=== PATIENT | male | born 1975 | race Caucasian/White ===

== ENCOUNTER 2023-07-19 10:09 | Day surgery (SDC) | payer OTHER ==
--- NOTE | 2023-07-19 09:11 | HP ---
DATE OF SURGERY: 07/19/2023 HISTORY OF PRESENT ILLNESS: The patient is a 47-year-old with no prior colonoscopy, no bloody stools, no change in bowel movements and no new pain. Family history negative for colon cancer. He was diagnosed with sleep apnea and started on CPAP machine. PAST MEDICAL HISTORY: Sleep apnea, migraines, gout. History of alcohol abuse in the past over since 2006. History of pancreatitis and depression in the past. PAST SURGICAL HISTORY: Carpal tunnel release. MEDICATIONS: Emgality, testosterone, buprenorphine. ALLERGIES: NKDA. FAMILY HISTORY: Negative in regards to this problem. Negative for colon cancer. SOCIAL HISTORY: History of smoking. No alcohol abuse. He does do some vaping. REVIEW OF SYSTEMS: Twelve systems reviewed. No chest pain or palpitations. Other systems negative or noncontributory as above and per preadmission questionnaire. PHYSICAL EXAMINATION: Height 6 feet 1 inch. BMI 23.75. GENERAL: No acute distress. HEENT: Sclerae nonicteric. EOMI. Oral mucous membranes moist. NECK: No JVD. CHEST: Equal excursion, nonlabored breathing. CVS: Regular rate and rhythm. ABDOMEN: Soft. EXTREMITIES: No cyanosis. NEURO: Alert, moving extremities symmetrically. RECTAL: Deferred timed to endoscopy exam. PSYCH: Appropriate mood and affect. SKIN: Dry. IMPRESSION: Need for screening colonoscopy. I feel the patient is a candidate. Risks and benefits explained in detail including but not limited to risk of bleeding or infection, risk of bowel injury or perforation possibly requiring further procedure, risk of missed or nondiagnosis or incomplete exam possibly requiring barium enema, other studies or procedures, general risk of anesthesia or sedation, risk of bowel prep but not limited to, consent obtained. Will proceed with outpatient screening colonoscopy under MAC anesthesia. Otherwise, continue treatment for sleep apnea, migraine headaches, depression, continue medical management.
[2023-07-19] MEDS: Lactated Ringers 1,000 ML IV SCH (11:00)
[2023-07-19] MEDS ORDERED: Versed 2 MG/2 ML Injection ONE (12:30)
[2023-07-19] MEDS ORDERED: DIPRIVAN 200 MG/20 ML IV ONE (12:30)
[2023-07-19 13:25] VITALS: RESP 16
[2023-07-19 13:28] VITALS: BP 133/85; PULSE 61; TEMP 97.4; O2SAT 98
--- NOTE | 2023-07-19 14:33 | OP ---
SURGERY DATE/TIME: 07/19/2023 1230 PREOPERATIVE DIAGNOSIS: Need for screening colonoscopy. POSTOPERATIVE DIAGNOSES: 1) Small polyps x2 rectum. 2) Fair bowel prep (large amount of liquidy stool throughout the colon just slightly limiting the exam for small lesions). 3) ASA Class II. PROCEDURES: 1) Colonoscopy to cecum. 2) Hot biopsy polypectomy rectal polyp x2. SURGEON: Dr. Gucci Liu M.D. ANESTHESIA: MAC. ESTIMATED BLOOD LOSS: Minimal. INDICATIONS: As noted above. Risks and benefits explained in detail but not limited to and consent obtained. DESCRIPTION OF PROCEDURE AND FINDINGS: The patient is taken to the endoscopy room. MAC anesthesia induced. After official time out and no disagreement with planned procedure, digital rectal exam did not reveal any rectal masses. Video colonoscope inserted and passed up through the tortuous sigmoid, descending, transverse and ascending colon around to the cecum. The scope was then carefully withdrawn over the next nine minutes. Irrigated out a large amount of liquidy stool, some little semisolid flakes limiting the exam for very small lesions this was suction irrigated as clear as possible. The scope was carefully withdrawn back to the rectum. Two small early polyps versus hyperplastic lesion removed with hot biopsy polypectomy. Good hemostasis noted. The scope is withdrawn. The patient tolerated the procedure well. Findings discussed with the family out in the waiting area.
== END 2023-07-19 13:39 | disposition home or self-care (01) ==
LOC: SDC 10:09
PROVIDERS: ATTEND Surgery
DX: Z12.11 Encounter for screening for malignant neoplasm of colon (principal); K62.1 Rectal polyp
CPT/HCPCS: J2250; J2704

== ENCOUNTER 2024-03-20 22:21 | Emergency (ER) | payer OTHER ==
--- NOTE | 2024-03-20 22:30 | ERPHSYRPT ---
- History of Present Illness Time Seen by Provider: 03/20/24 22:30 Source: patient Exam Limitations: no limitations Physician History: This is a 48-year-old white male patient who arrives by private vehicle and uses [facility] as his primary care providers and presents with midline suprapubic tenderness that began yesterday and is described as localized and sharp. Patient has not done any heavy lifting or sustained any trauma to this area. He had no acute sudden lifting or falls. Patient has associated dysuria and urinary frequency. Patient has not noticed any hematuria. Patient was seen in the pain clinic on 03/13/2024 for management of chronic back pain issues that he has. Patient is a daily smoker of tobacco cigarettes. In the distant past patient has had history of alcohol abuse and has a history of occasional recurrent pancreatitis. He has a history of sleep apnea and arthritis. Timing/Duration: yesterday Activites at Onset: physical activity Quality: burning (With urination), sharpness (Present in the suprapubic region) Onset Location: suprapubic Pain Radiation: none Severity of Pain-Max: moderate Severity of Pain-Current: mild Modifying Factors: Improves With: movement Associated Symptoms: abdominal pain (Sharp pain in the superior pubic region), dysuria, urinary frequency, other (Has had more difficulty starting urinary flow in the last 2 days), No nausea, No vomiting Prior abdominal problems: none Sexual intercourse history: non-contributory Allergies/Adverse Reactions: No Known Drug Allergies Allergy (Verified 03/20/24 22:40) Home Medications: Buprenorphine HCl/Naloxone HCl [Buprenorphine-Nalox 8-2 mg Tab] 2 tab SL DAILY 07/08/23 [History] Galcanezumab-Gnlm [Emgality Pen] 1 dose SQ UD 07/08/23 [History] Testosterone Cypionate 0.25 mg SQ WEEKLY 07/08/23 [History] Ubrogepant [Ubrelvy] 2 tab PO DAILY PRN PRN 07/08/23 [History] Gabapentin 100 mg PO TID 03/20/24 [History] buPROPion HCL [Bupropion Xl] 300 mg PO DAILY 03/20/24 [History] Travel Risk - International Travel Have you traveled outside of the country in past 3 weeks: No - Emerging Infectious Disease Are you exhibiting symptoms associated with any current EIDs: No - Past Medical History Pertinent Past Medical History: Yes Neurological History: No Pertinent History ENT History: No Pertinent History Cardiac History: No Pertinent History Respiratory History: Sleep Apnea Endocrine Medical History: No Pertinent History Musculoskeletal History: Arthritis GI Medical History: Pancreatitis History: No Pertinent History Psycho-Social History: Depression Male Reproductive Disorders: Other Other Medical History: c-pap at night, neck, spine and joint problems. depression in the past. alcohol abuse in the past - Past Surgical History Past Surgical History: Yes Neuro Surgical History: No Pertinent History Cardiac: No Pertinent History Respiratory: No Pertinent History Gastrointestinal: No Pertinent History Genitourinary: No Pertinent History Musculoskeletal: Other Male Surgical History: No Pertinent History Other Surgical History: carpaltuneel both hands - Social History Smoking Status: Current every day smoker Exposure to second hand smoke: No Drug Use: none - Review of Systems Constitutional: No Symptoms Eyes: No Symptoms Ears, Nose, & Throat: No Symptoms Respiratory: No Symptoms Cardiac: No Symptoms Abdominal/Gastrointestinal: Abdominal Pain (Sharp pain in the suprapubic region) Genitourinary Symptoms: Dysuria, Frequency Musculoskeletal: No Symptoms Skin: No Symptoms Neurological: No Symptoms Psychological: No Symptoms Endocrine: No Symptoms Hematologic/Lymphatic: No Symptoms Immunological/Allergic: No Symptoms All Other Systems: Reviewed and Negative - Nursing Vital Signs Nursing Vital Signs: Initial Vital Signs Temperature 98.5 F 03/20/24 22:30 Pulse Rate 83 03/20/24 22:30 Respiratory Rate 16 03/20/24 22:30 Blood Pressure 135/85 03/20/24 22:30 O2 Sat by Pulse Oximetry 98 03/20/24 22:30 Pain Scale Pain Intensity 1 - Physical Exam General Appearance: no apparent distress, alert, anxiety Eye Exam: PERRL/EOMI, eyes nml inspection Ears, Nose, Throat Exam: normal ENT inspection, moist mucous membranes Neck Exam: normal inspection, non-tender, supple, full range of motion Respiratory Exam: normal breath sounds, lungs clear, airway intact, No chest tenderness, No respiratory distress Cardiovascular Exam: regular rate/rhythm, normal heart sounds, normal peripheral pulses Gastrointestinal/Abdomen Exam: soft, normal bowel sounds, tenderness (Localized sharpness to palpation suprapubic region), No rebound Rectal Exam: not done Back Exam: normal inspection, normal range of motion, No CVA tenderness, No vertebral tenderness Extremity Exam: normal inspection, normal range of motion, pelvis stable Neurologic Exam: alert, oriented x 3, cooperative, canoe maker II-XII nml as tested, nml cerebellar function, nml station & gait, sensation nml Skin Exam: normal color, warm, dry Lymphatic Exam: No adenopathy SpO2 Interpretation: normal O2 Delivery: Room Air - Course Nursing assessment & vital signs reviewed: Yes Ordered Tests: Active Orders 24 hr Category Date Time Status ABDOMEN AND PELVIS W/0 CONTRAS [CT] Stat Exams 03/20/24 22:50 Completed UA W/RFX UR CULTURE Stat Lab 03/20/24 22:46 Completed Lab/Rad Data: Laboratory Results 03/20/24 Range/Units 22:46 Urine Color Yellow (Yellow) Urine Appearance Clear (Clear) Urine pH 6.0 (4.6-8.0) Ur Specific [employer] <=1.005 (1.005-1.030) Urine Protein Negative (Negative) Urine Glucose (UA) Negative (Negative) mg/dL Urine Ketones Negative (Negative) Urine Blood Negative (Negative) Urine Nitrite Negative (Negative) Urine Bilirubin Negative (Negative) Urine Urobilinogen 1.0 A (0.2) mg/dL Ur Leukocyte Esterase Negative (Negative) U Hyaline Cast (Auto) NONE SEEN (0-2) /LPF Urine Microscopic RBC 0-2 (0-5) /HPF Urine Microscopic WBC 0-2 (0-5) /HPF Ur Epithelial Cells None Seen (None Seen) /HPF Urine Bacteria None Seen (None Seen) /HPF Urine Culture Reflexed NO (NO) - Progress Progress: pain not gone completely Progress Note: 03/20/24 23:04 My medical decision making and the assignment of low to moderate complexity of this patient's medical issue today is based on review of the patient's past medical history, review of the patient's medication list, reviewed patient drug allergy list, history present illness and physical findings on examination. The workup in this patient includes urinalysis and CT scan of the abdomen pelvis without contrast. Differential diagnosis includes but is not limited to urinary tract infection, ureterolithiasis, abdominal wall hernia 03/21/24 00:25 I interpreted the patient's laboratory data results. Based on the laboratory data results, there are no acute, emergent medical issues. The CT scan of the abdomen pelvis without contrast was interpreted by the ra diologist and I reviewed the impression. The impression states chronic calcified pancreatitis. No acute inflammatory changes seen. There is no other abnormality seen on this study. Counseled pt/family regarding: lab results, diagnosis, need for follow-up, rad results Medical Desision Making - Diagnostic Testing Diagnostic test were ordered, analyzed, and reviewed by me: Yes Radiological Interpretation: Reviewed by me, Teleradiologist Report - Risk of complications Low Risk: Low risk of morbidity from additional dx testing or treatment - Departure Departure Disposition: Home Clinical Impression: Suprapubic pain Condition: Stable Critical Care Time: No Additional Instructions: Take all your medications as prescribed. Call your pain management physician and primary care provider later today, 03/21/2024, to make arrangements for follow-up appointment to be seen in the next 3 to 5 days and to discuss referral to a urologist.
[2024-03-20 22:31] VITALS: RESP 16; TEMP 98.5
[2024-03-20 22:58] LABS: Appearance Clear (Clear); Bacteria None Seen /HPF (None Seen); Bilirubin Negative (Negative); Blood Negative (Negative); Epithelial Cells None Seen /HPF (None Seen); Glucose, Urine Negative (Negative); Hyaline Casts NONE SEEN /LPF (0-2); Ketones Negative (Negative); Leukocyte Esterase Negative (Negative); Nitrite Negative (Negative); Protein,Urine Dip Negative (Negative); RBC 0-2 /HPF (0-5); Specific Gravity <=1.005 (1.005-1.030); WBC 0-2 /HPF (0-5)
--- NOTE | 2024-03-21 00:18 | XRAY ---
CLINICAL HISTORY: Suprapubic pain COMPARISON: - TECHNIQUE: Contiguous axial images were obtained from the level of the diaphragm to the pubic symphysis without intravenous or oral contrast. Coronal and sagittal reconstructions were likewise performed and indicated to increase the sensitivity for detecting clinically relevant pathology. CT scan was performed according to ALARA (as low as reasonable achievable). FINDINGS: The visualized lung bases are clear. Evaluation of the abdominal and pelvic visceral organs is limited without intravenous contrast. There is atrophy of the pancreatic parenchyma. The pancreatic duct is dilated and tortous with presence of intraductal calculi, measuring around 3-7 mm. No peripancreatic collection seen. The unenhanced liver, spleen and adrenal glands are grossly unremarkable. The gallbladder is present. The kidneys are normal in size and attenuation without obvious calcification. There is no hydronephrosis or perinephric stranding. The ureters are normal in caliber. No adenopathy or fluid collections are seen. No evidence of focal or diffuse bowel wall thickening or evidence of bowel obstruction is seen. The appendix is visualized in the right lower quadrant and appears within normal limits. The aorta is normal in caliber. The urinary bladder is normal in contour. Pelvic viscera are grossly unremarkable. No aggressive appearing osseous lesions are identified. IMPRESSION: 1. Chronic calcific pancreatitis. No acute inflammatory changes seen. 2. No other abnormality seen in the present study Electronically Signed by: Dale Waggoner MD. (03/21/2024 00:13:41 EDT)
[2024-03-21 00:51] VITALS: BP 130/90; PULSE 90; O2SAT 97
== END 2024-03-21 00:55 | disposition home or self-care (01) ==
LOC: ED 22:21
DX: R10.2 Pelvic and perineal pain (principal); R30.0 Dysuria; R35.0 Frequency of micturition; Z79.891 Long term (current) use of opiate analgesic; Z79.899 Other long term (current) drug therapy; Z72.0 Tobacco use
CPT/HCPCS: 74176; 81001; 99283

== ENCOUNTER 2024-04-05 13:15 | Day surgery (SDC) | payer OTHER ==
[2024-04-05] MEDS ORDERED: Decadron 4 MG INJ IV ONE (13:16)
[2024-04-05] MEDS ORDERED: Sodium Chloride 0.9(Preservative Free) 10 ML IJ ONE (13:16)
[2024-04-05] MEDS ORDERED: Pepcid 20 MG VIAL IV ONE (14:27)
[2024-04-05] MEDS ORDERED: Reglan 10 MG/2 ML ONE (14:27)
[2024-04-05] MEDS ORDERED: DIPRIVAN 200 MG/20 ML IV ONE (15:24)
--- NOTE | 2024-04-05 17:17 | XRAY ---
Indication: Left L4-S1 transforaminal JORGE. Intraoperative fluoroscopy provided for 20 second. 4 digital spot image submitted for interpretation demonstrates posterior needle tips projecting over expected left L4 and L5 nerve roots. Small amount of contrast injected for needle tip placement. Correlate with intraoperative findings/report.
--- NOTE | 2024-04-06 09:10 | XRAY ---
20 seconds of fluoroscopy was used in surgery for a left L4-S1 transforaminal JORGE.
== END 2024-04-05 16:09 ==
LOC: SDC-PAIN 13:15
PROVIDERS: ATTEND Psychiatry & Neurology Pain Medicine
DX: M54.16 Radiculopathy, lumbar region (principal)
CPT/HCPCS: 64483; 64484; 72100; 77003; J1100; J2704; Q9966

== ENCOUNTER 2025-03-04 21:47 | Observation (INO) | payer OTHER ==
--- NOTE | 2025-03-04 22:12 | ERPHSYRPT ---
- History of Present Illness Time Seen by Provider: 03/04/25 21:59 Historian: patient Exam Limitations: no limitations Physician History: 49-year-old male history of pancreatitis presents the emergency room with epigastric pain nausea and vomiting that started going for the past day and a half denies any recent sick contacts denies any chest pain or shortness of breath denies any flank pain or urinary symptoms denies any rash denies any recent travel or trauma patient is now in ED for further eval Timing/Duration: yesterday Activities at Onset: none Quality: aching Abdominal Pain Onset Location: epigastric Pain Radiation: no radiation Severity of Pain-Max: mild Severity of Pain-Current: mild Associated Symptoms: nausea, vomiting Allergies/Adverse Reactions: No Known Drug Allergies Allergy (Verified 03/04/25 22:02) Home Medications: Buprenorphine HCl/Naloxone HCl [Buprenorphine-Nalox 8-2 mg Tab] 2 tab SL DAILY 07/08/23 [History] Galcanezumab-Gnlm [Emgality Pen] 1 dose SQ . MONTHLY 07/08/23 [History] Testosterone Cypionate 0.25 mg SQ WEEKLY 07/08/23 [History] Ubrogepant [Ubrelvy] 2 tab PO DAILY PRN PRN 07/08/23 [History] buPROPion HCL [Bupropion Xl] 300 mg PO DAILY 03/20/24 [History] Ondansetron ODT 4 MG [Zofran Odt 4 mg] 4 mg PO Q8H PRN PRN 03/04/25 [History] Hx Tetanus, Diphtheria Vaccination/Date Given: Yes Hx Influenza Vaccination/Date Given: No Hx Pneumococcal Vaccination/Date Given: No Travel Risk - Emerging Infectious Disease Are you exhibiting symptoms associated with any current EIDs: No - Review of Systems Constitutional: No Fever, No Chills Eyes: No Symptoms Ears, Nose, & Throat: No Symptoms Respiratory: No Cough, No Dyspnea Cardiac: No Chest Pain, No Edema, No Syncope Abdominal/Gastrointestinal: Abdominal Pain, Nausea, Vomiting, No Diarrhea Genitourinary Symptoms: No Dysuria Musculoskeletal: No Back Pain, No Neck Pain Skin: No Rash Neurological: No Dizziness, No Focal Weakness, No Sensory Changes Psychological: No Symptoms Endocrine: No Symptoms All Other Systems: Reviewed and Negative - Past Medical History Pertinent Past Medical History: Yes Neurological History: No Pertinent History ENT History: No Pertinent History Cardiac History: No Pertinent History Respiratory History: Sleep Apnea Endocrine Medical History: No Pertinent History Musculoskeletal History: Arthritis GI Medical History: Pancreatitis History: No Pertinent History Psycho-Social History: Depression Male Reproductive Disorders: Other Other Medical History: c-pap at night, neck, spine and joint problems. depression in the past. alcohol abuse in the past - Past Surgical History Past Surgical History: Yes Neuro Surgical History: No Pertinent History Cardiac: No Pertinent History Respiratory: No Pertinent History Gastrointestinal: No Pertinent History Genitourinary: No Pertinent History Musculoskeletal: Other Male Surgical History: No Pertinent History Other Surgical History: carpaltuneel both hands - Social History Smoking Status: Current every day smoker Exposure to second hand smoke: No Drug Use: none - Social Determinants of Health Will the patient participate in the screening: Yes Do you worry about a steady place to live?: No In the past 12 months,have you had to go without utilities?: No Transportation Issues: No Has anyone in your support network made you feel unsafe?: No Have you or anyone in your house had to go w/o enough food: No - Nursing Vital Signs Nursing Vital Signs: Initial Vital Signs Temperature 99.3 F 03/04/25 22:05 Pulse Rate 64 03/04/25 22:05 Respiratory Rate 18 03/04/25 22:05 Blood Pressure 120/87 03/04/25 22:05 O2 Sat by Pulse Oximetry 97 03/04/25 22:05 Pain Scale Pain Intensity 6 - Physical Exam General Appearance: no apparent distress, alert Eye Exam: PERRL/EOMI, eyes nml inspection Ears, Nose, Throat Exam: normal ENT inspection, pharynx normal, moist mucous membranes Neck Exam: normal inspection, non-tender, supple, full range of motion Respiratory Exam: normal breath sounds, lungs clear, No respiratory distress Cardiovascular Exam: regular rate/rhythm, normal heart sounds Gastrointestinal/Abdomen Exam: soft, tenderness (Epigastric tender), No mass Back Exam: normal inspection, normal range of motion, No CVA tenderness, No vertebral tenderness Extremity Exam: normal inspection, normal range of motion, pelvis stable Neurologic Exam: alert, oriented x 3, cooperative, normal mood/affect, nml cerebellar function, sensation nml, No motor deficits Skin Exam: normal color, warm, dry - Course Nursing assessment & vital signs reviewed: Yes Ordered Tests: Active Orders 24 hr Category Date Time Status Bedrest with BRP/BSC ROUTINE Activity 03/05/25 00:47 Active Admit as Inpatient ROUTINE Care 03/05/25 00:46 Active Call Admit Doctor for Orders ON ADMISSION Care 03/05/25 00:46 Active 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 Care 03/05/25 00:47 Active Code Status Order ROUTINE Care 03/05/25 00:46 Active IV Insertion STAT Care 03/04/25 22:03 Active NPO (ED) STAT Care 03/05/25 00:08 Active POCT Glucose Check ONCE Care 03/05/25 00:46 Active Telemetry q6h Care 03/05/25 00:46 Active Telemetry q6h Care 03/05/25 00:47 Active Consult Surgery ROUTINE Cons 03/05/25 00:47 Active NPO Diet 03/05/25 00:47 Active ABDOMEN AND PELVIS W CONTRAST [CT] Stat Exams 03/04/25 22:04 Completed BLOOD CULTURE Stat Lab 03/05/25 00:39 Received CBC W DIFF Stat Lab 03/04/25 22:35 Completed CMP Stat Lab 03/04/25 22:35 Completed LIPASE Stat Lab 03/04/25 22:35 Completed Lactic Acid Stat Lab 03/04/25 22:29 Completed PT INR [PROTIME WITH INR] Stat Lab 03/05/25 00:00 Completed PTT Stat Lab 03/05/25 00:00 Completed UA W/RFX UR CULTURE Stat Lab 03/04/25 23:30 Completed Pulse Oximetry CONTINUOUS RT 03/05/25 00:47 Active Medication Summary Generic Name Dose Route Start Last Admin Trade Name Freq PRN Reason Stop Dose Admin Sodium Chloride 1,000 mls @ 100 mls/hr 03/05/25 00:15 03/05/25 00:38 Sodium Chloride 0.9% 1000 Ml IV 04/04/25 00:14 100 mls/hr .Q10H ANITA Administration Discontinued Medications Generic Name Dose Route Start Last Admin Trade Name Freq PRN Reason Stop Dose Admin Famotidine 20 mg 03/04/25 22:03 03/04/25 22:21 Famotidine 20 Mg/1 Vial IV 03/04/25 22:04 20 mg STAT ONE Administration Famotidine Confirm 03/04/25 22:17 Famotidine 20 Mg/1 Vial Administered 03/04/25 22:18 Dose 20 mg IV .STK-MED ONE Hydromorphone HCl 0.5 mg 03/04/25 23:27 03/04/25 23:31 Hydromorphone 1 Mg/1ml Inj IV 03/04/25 23:28 0.5 mg STAT ONE Administration Hydromorphone HCl Confirm 03/04/25 23:30 Hydromorphone 1 Mg/1ml Inj Administered 03/04/25 23:31 Dose 1 mg .ROUTE .STK-MED ONE Sodium Chloride 1,000 mls @ 999 mls/hr 03/04/25 22:03 03/04/25 23:21 Sodium Chloride 0.9% 1000 Ml IV 03/04/25 23:03 Infused .Q1H1M STA Infusion Sodium Chloride Confirm 03/04/25 22:17 Sodium Chloride 0.9% 1000 Ml Administered 03/04/25 22:18 Dose 1,000 mls @ ud .ROUTE .STK-MED ONE Piperacillin Sod/Tazobactam 100 mls @ 200 mls/hr 03/05/25 00:06 03/05/25 00:30 Sod 3.375 gm/ Sodium Chloride IV 03/05/25 00:35 200 mls/hr STAT STA 200 mls/hr Administration Sodium Chloride Confirm 03/05/25 00:26 Sodium Chloride 0.9% Administered 03/05/25 00:27 Dose 100 mls @ ud .ROUTE .STK-MED ONE Morphine Sulfate 4 mg 03/04/25 22:06 03/04/25 22:21 Morphine Sulfate 4 Mg/Ml Injection IV 03/04/25 22:07 4 mg STAT ONE Administration Morphine Sulfate Confirm 03/04/25 22:17 Morphine Sulfate 4 Mg/Ml Injection Administered 03/04/25 22:18 Dose 4 mg .ROUTE .STK-MED ONE Ondansetron HCl 4 mg 03/04/25 22:03 03/04/25 22:21 Ondansetron Hcl 4 Mg/2 Ml Vial IV 03/04/25 22:04 4 mg STAT ONE Administration Ondansetron HCl Confirm 03/04/25 22:17 Ondansetron Hcl 4 Mg/2 Ml Vial Administered 03/04/25 22:18 Dose 4 mg .ROUTE .STK-MED ONE Piperacillin Sod/Tazobactam Sod Confirm 03/05/25 00:26 Piperacillin/Tazobactam Sodium 3.375 Gm Vial Administered 03/05/25 00:27 Dose 3.375 gm IV .[facility] ONE Lab/Rad Data: Laboratory Result Diagrams 03/04/25 22:35 03/04/25 22:35 Laboratory Results 03/05/25 03/04/25 03/04/25 Range/Units 00:00 23:30 22:35 WBC (4.23-9.07) x10^3/uL RBC (4.63-6.08) x10^6/uL Hgb (13.7-17.5) g/dL Hct (40.1-51.0) % MCV (79.0-92.2) fL MCH (25.7-32.2) pg MCHC (32.3-36.5) g/dL RDW (11.6-14.4) % Plt Count (163-337) x10^3/uL MPV (9.4-12.4) fL Gran % (34.0-67.9) % Immature Gran % (Auto) (0.001-0.429) % Nucleat RBC Rel Count (0.00-0.2) % Eos # (Auto) (0.04-0.54) x10^3/uL Immature Gran # (Auto) (0.001-0.031) x10^3u/L Absolute Lymphs (auto) (1.32-3.57) x10^3/uL Absolute Monos (auto) (0.30-0.82) x10^3/uL Absolute Nucleated RBC (0.00-0.012) x10^3u/L Lymphocytes % (21.8-53.1) % Monocytes % (5.3-12.2) % Eosinophils % (0.8-7.0) % Basophils % (0.2-1.2) % Absolute Granulocytes (1.78-5.38) x10^3/uL Basophils # (0.01-0.08) x10^3/uL PT 11.3 (9.4-12.5) SECONDS INR 1.01 (0.8-3.0) APTT 24.7 L (25.1-36.5) SECONDS Sodium 138 (135-145) mmol/L Potassium 3.4 L (3.5-5.1) mmol/L Chloride 102 (98-107) mmol/L Carbon Dioxide 28 (22-30) mmol/L Anion Gap 11.5 (5-15) MEQ/L BUN 9 (9-20) mg/dL Creatinine 1.00 (0.66-1.25) mg/dL Estimated GFR 93.4 ML/MIN Glucose 104 (74-106) mg/dL Lactic Acid (0.4-2.0) Calcium 9.0 (8.4-10.2) mg/dL Total Bilirubin 0.50 (0.2-1.3) mg/dL AST 41 (17-59) U/L ALT 67 H (0-50) U/L Alkaline Phosphatase 93 (38-126) U/L Serum Total Protein 7.0 (6.3-8.2) g/dL Albumin 4.6 (3.5-5.0) g/dL Lipase 12 L (23-300) U/L Urine Color Yellow (Yellow) Urine Appearance Clear (Clear) Urine pH 5.5 (4.6-8.0) Ur Specific [place] 1.015 (1.005-1.030) Urine Protein Negative (Negative) Urine Glucose (UA) Negative (Negative) mg/dL Urine Ketones Negative (Negative) Urine Blood Negative (Negative) Urine Nitrite Negative (Negative) Urine Bilirubin Negative (Negative) Urine Urobilinogen 0.2 (0.2) mg/dL Ur Leukocyte Esterase Trace A (Negative) U Hyaline Cast (Auto) NONE SEEN (0-2) /LPF Urine Microscopic RBC 0-2 (0-5) /HPF Urine Microscopic WBC 0-2 (0-5) /HPF Ur Epithelial Cells None Seen (None Seen) /HPF Urine Bacteria None Seen (None Seen) /HPF Urine Culture Reflexed NO (NO) 03/04/25 03/04/25 Range/Units 22:35 22:29 WBC 13.4 H (4.23-9.07) x10^3/uL RBC 4.22 L (4.63-6.08) x10^6/uL Hgb 13.3 L (13.7-17.5) g/dL Hct 39.8 L (40.1-51.0) % MCV 94.3 H (79.0-92.2) fL MCH 31.5 (25.7-32.2) pg MCHC 33.4 (32.3-36.5) g/dL RDW 12.2 (11.6-14.4) % Plt Count 227 (163-337) x10^3/uL MPV 10.3 (9.4-12.4) fL Gran % 76.4 H (34.0-67.9) % Immature Gran % (Auto) 0.3 (0.001-0.429) % Nucleat RBC Rel Count 0.0 (0.00-0.2) % Eos # (Auto) 0.09 (0.04-0.54) x10^3/uL Immature Gran # (Auto) 0.04 H (0.001-0.031) x10^3u/L Absolute Lymphs (auto) 2.33 (1.32-3.57) x10^3/uL Absolute Monos (auto) 0.68 (0.30-0.82) x10^3/uL Absolute Nucleated RBC 0.00 (0.00-0.012) x10^3u/L Lymphocytes % 17.4 L (21.8-53.1) % Monocytes % 5.1 L (5.3-12.2) % Eosinophils % 0.7 L (0.8-7.0) % Basophils % 0.1 L (0.2-1.2) % Absolute Granulocytes 10.20 H (1.78-5.38) x10^3/uL Basophils # 0.02 (0.01-0.08) x10^3/uL PT (9.4-12.5) SECONDS INR (0.8-3.0) APTT (25.1-36.5) SECONDS Sodium (135-145) mmol/L Potassium (3.5-5.1) mmol/L Chloride (98-107) mmol/L Carbon Dioxide (22-30) mmol/L Anion Gap (5-15) MEQ/L BUN (9-20) mg/dL Creatinine (0.66-1.25) mg/dL Estimated GFR ML/MIN Glucose (74-106) mg/dL Lactic Acid 0.9 (0.4-2.0) Calcium (8.4-10.2) mg/dL Total Bilirubin (0.2-1.3) mg/dL AST (17-59) U/L ALT (0-50) U/L Alkaline Phosphatase (38-126) U/L Serum Total Protein (6.3-8.2) g/dL Albumin (3.5-5.0) g/dL Lipase (23-300) U/L Urine Color (Yellow) Urine Appearance (Clear) Urine pH (4.6-8.0) Ur Specific [place] (1.005-1.030) Urine Protein (Negative) Urine Glucose (UA) (Negative) mg/dL Urine Ketones (Negative) Urine Blood (Negative) Urine Nitrite (Negative) Urine Bilirubin (Negative) Urine Urobilinogen (0.2) mg/dL Ur Leukocyte Esterase (Negative) U Hyaline Cast (Auto) (0-2) /LPF Urine Microscopic RBC (0-5) /HPF Urine Microscopic WBC (0-5) /HPF Ur Epithelial Cells (None Seen) /HPF Urine Bacteria (None Seen) /HPF Urine Culture Reflexed (NO) - Progress Progress: improved Progress Note: 03/05/25 00:07 TECHNIQUE: Multiple contiguous axial images were obtained from the level of the diaphragm to the pubic symphysis. This study was acquired after the intravenous administration of iodinated contrast material, given the patient's indications for the examination. If intravenous contrast material had not been administered, the likelihood of detecting abnormalities relevant to the patient's condition would have been substantially decreased. Coronal and sagittal reformatted images were generated and reviewed to improve anatomic localization and optimize lesion detection. The CT scan was performed according to ALARA (as low as reasonably achievable) guidelines. FINDINGS: The visualized lung bases are clear. ABDOMEN/PELVIS: The liver is normal in size and attenuation. No focal liver lesions are seen. There is no intrahepatic or extrahepatic biliary ductal dilatation. The hepatic vasculature is patent. The gallbladder is unremarkable. The spleen and adrenal glands are unremarkable. There is atrophy of the pancreatic parenchyma. The pancreatic duct is dilated and tortuous, with the presence of intraductal calculi measuring around 3?7 mm. No peripancreatic collection is seen. The kidneys are normal in size and attenuation. There is no hydronephrosis or perinephric fat stranding. No renal calculi or renal masses are identified. The ureters are normal in caliber, and no ureteral calculi are seen. The bladder is normal in contour. No evidence of focal or diffuse bowel wall thickening or evidence of bowel obstruction is seen. The appendix is visualized in the right lower quadrant in subcaecal position and appears thickened with a maximum thickness of approximately 10mm, with minimal periappendiceal fat stranding. No adenopathy or fluid collections are seen. The aorta is normal in caliber. No aggressive-appearing osseous lesions are identified. IMPRESSION: 1. The appendix is visualized in the right lower quadrant in subcaecal position and appears thickened with a maximum thickness of approximately 10mm, with minimal periappendiceal fat stranding. Imaging features are likely to suggest mild appendicitis in appropriate clinical settings. 2. Chronic calcific pancreatitis. No acute inflammatory changes seen. 3. No other abnormality seen in the present study. 03/05/25 00:[address] findings concerning for appendicitis patient was started on Zosyn blood cultures were sent IV fluids patient pain given pain control and antiemetics awaiting callback from surgery 03/05/25 00:16 Discussed the case with Dr. Liu from surgery who recommends n.p.o. patient will be evaluated in the morning by surgery in the meantime admit hospitalist service 03/05/25 00:20 03/05/25 00:58 Discussed the case with the hospitalist Dr. Heart who admit the patient to his service with a consult to surgery - Departure Departure Disposition: In-patient Admission Clinical Impression: Appendicitis Qualifiers: Appendicitis type: acute appendicitis Acute appendicitis type: unspecified acute appendicitis type Qualified Code(s): K35.80 - Unspecified acute appendicitis Condition: Stable Critical Care Time: No Referrals: DOCTOR,NO FAMILY [NON-STAFF PHY W/O PRIVILEGES, UNKNOWN] - Follow up/PCP as directed
[2025-03-04] MEDS ORDERED: Pepcid 20 MG VIAL IV ONE (22:17)
[2025-03-04] MEDS ORDERED: MORPHINE SULFATE 4 MG INJ ONE (22:17)
[2025-03-04] MEDS ORDERED: Zofran 4 MG/2 ML VIAL ONE (22:17)
[2025-03-04] MEDS: Pepcid 20 MG VIAL IV ONE (22:21)
[2025-03-04] MEDS: MORPHINE SULFATE 4 MG INJ IV ONE (22:21)
[2025-03-04] MEDS: Zofran 4 MG/2 ML VIAL IV ONE (22:21)
[2025-03-04 22:38] LABS: BASOPHIL % 0.1 % (0.2-1.2); Basophil (Absolute #) 0.02 x10^3/uL (0.01-0.08); Eosinophil (Absolute #) 0.09 x10^3/uL (0.04-0.54); Hematocrit 39.8 % (40.1-51.0); Hemoglobin 13.3 g/dL (13.7-17.5); IMMATURE GRAN # 0.04 x10^3u/L (0.001-0.031); IMMATURE GRAN % 0.3 % (0.001-0.429); Lymphocyte (Absolute #) 2.33 x10^3/uL (1.32-3.57); Mean Corpuscular Hemoglobin 31.5 pg (25.7-32.2); Mean Corpuscular Hgb Concent. 33.4 g/dL (32.3-36.5); Monocyte (Absolute #) 0.68 x10^3/uL (0.30-0.82); NUCLEATED RBC # 0.00 x10^3u/L (0.00-0.012); NUCLEATED RBC % 0.0 % (0.00-0.2); Platelet Count 227 x10^3/uL (163-337); Red Blood Count 4.22 x10^6/uL (4.63-6.08); White Blood Count 13.4 x10^3/uL (4.23-9.07)
[2025-03-04 22:53] LABS: Calcium 9.0 mg/dL (8.4-10.2); Carbon Dioxide 28.0 mmol/L (22-30); Creatinine 1 1.0 mg/dL (0.66-1.25); EST GLOMERULAR FILTRATION RATE 93.4 ML/MIN; Glucose 104.0 mg/dL (74-106); Potassium 3.4 mmol/L (3.5-5.1); SGOT/AST 41.0 U/L (17-59); SGPT/ALT 67.0 U/L (0-50); Total Protein 7.0 g/dL (6.3-8.2)
[2025-03-04] MEDS ORDERED: Hydromorphone 1 mg/ml Injection ONE (23:30)
[2025-03-04] MEDS: Hydromorphone 1 mg/ml Injection IV ONE (23:31)
[2025-03-04 23:37] LABS: Glucose, Urine Negative (Negative); Protein,Urine Dip Negative (Negative); RBC 0-2 /HPF (0-5); WBC 0-2 /HPF (0-5)
--- NOTE | 2025-03-05 00:02 | XRAY ---
CLINICAL HISTORY: abdominal pain COMPARISON: TECHNIQUE: Multiple contiguous axial images were obtained from the level of the diaphragm to the pubic symphysis. This study was acquired after the intravenous administration of iodinated contrast material, given the patient's indications for the examination. If intravenous contrast material had not been administered, the likelihood of detecting abnormalities relevant to the patient's condition would have been substantially decreased. Coronal and sagittal reformatted images were generated and reviewed to improve anatomic localization and optimize lesion detection. The CT scan was performed according to ALARA (as low as reasonably achievable) guidelines. FINDINGS: The visualized lung bases are clear. ABDOMEN/PELVIS: The liver is normal in size and attenuation. No focal liver lesions are seen. There is no intrahepatic or extrahepatic biliary ductal dilatation. The hepatic vasculature is patent. The gallbladder is unremarkable. The spleen and adrenal glands are unremarkable. There is atrophy of the pancreatic parenchyma. The pancreatic duct is dilated and tortuous, with the presence of intraductal calculi measuring around 3?7 mm. No peripancreatic collection is seen. The kidneys are normal in size and attenuation. There is no hydronephrosis or perinephric fat stranding. No renal calculi or renal masses are identified. The ureters are normal in caliber, and no ureteral calculi are seen. The bladder is normal in contour. No evidence of focal or diffuse bowel wall thickening or evidence of bowel obstruction is seen. The appendix is visualized in the right lower quadrant in subcaecal position and appears thickened with a maximum thickness of approximately 10mm, with minimal periappendiceal fat stranding. No adenopathy or fluid collections are seen. The aorta is normal in caliber. No aggressive-appearing osseous lesions are identified. IMPRESSION: 1. The appendix is visualized in the right lower quadrant in subcaecal position and appears thickened with a maximum thickness of approximately 10mm, with minimal periappendiceal fat stranding. Imaging features are likely to suggest mild appendicitis in appropriate clinical settings. 2. Chronic calcific pancreatitis. No acute inflammatory changes seen. 3. No other abnormality seen in the present study. Electronically Signed by: Dale Waggoner MD. (03/05/2025 00:02:21 EDT)
[2025-03-05 00:23] LABS: INR 1.01 (0.8-3.0); PROTIME 11.3 SECONDS (9.4-12.5); PTT 24.7 SECONDS (25.1-36.5)
[2025-03-05] MEDS ORDERED: PIPERACILLIN/TAZOBACTAM IV ONE ×2 (00:26→06:15)
[2025-03-05 01:24] LABS: ABO TYPING A; RH TYPING POSITIVE
[2025-03-05 05:02] LABS: BASOPHIL % 0.1 % (0.2-1.2); Basophil (Absolute #) 0.01 x10^3/uL (0.01-0.08); Eosinophil (Absolute #) 0.09 x10^3/uL (0.04-0.54); Hematocrit 34.7 % (40.1-51.0); Hemoglobin 11.8 g/dL (13.7-17.5); IMMATURE GRAN # 0.04 x10^3u/L (0.001-0.031); IMMATURE GRAN % 0.4 % (0.001-0.429); Lymphocyte (Absolute #) 2.35 x10^3/uL (1.32-3.57); Mean Corpuscular Hemoglobin 31.4 pg (25.7-32.2); Mean Corpuscular Hgb Concent. 34.0 g/dL (32.3-36.5); Monocyte (Absolute #) 0.67 x10^3/uL (0.30-0.82); NUCLEATED RBC # 0.00 x10^3u/L (0.00-0.012); NUCLEATED RBC % 0.0 % (0.00-0.2); Platelet Count 199 x10^3/uL (163-337); Red Blood Count 3.76 x10^6/uL (4.63-6.08); White Blood Count 11.1 x10^3/uL (4.23-9.07)
[2025-03-05] MEDS: Hydromorphone 1 mg/ml Injection IV ONE (05:07)
[2025-03-05 05:17] LABS: Calcium 8.3 mg/dL (8.4-10.2); Carbon Dioxide 26.0 mmol/L (22-30); Creatinine 1 0.93 mg/dL (0.66-1.25); EST GLOMERULAR FILTRATION RATE 101.9 ML/MIN; Glucose 101.0 mg/dL (74-106); Potassium 3.7 mmol/L (3.5-5.1); SGOT/AST 30.0 U/L (17-59); SGPT/ALT 50.0 U/L (0-50); Total Protein 5.6 g/dL (6.3-8.2)
--- NOTE | 2025-03-05 05:28 | PCM.HP ---
History of Present Illness - Chief Complaint Chief Complaint: appendicitis History of Present Illness: Acute appendicitis (acute, high risk) - Blood cultures have been collected and sent. - IV Zosyn has been initiated empirically. - ER discussed case with ER physician, with a plan for an appendectomy in the morning. - He is to be kept NPO. - A second liter IV fluid bolus was ordered, to be followed by maintenance fluids at 100 cc/hour. - A second dose of IV Dilaudid 0.5 mg was administered for pain control. Chronic pancreatitis (chronic, high risk) - Discussed the benefit of outpatient serial gastroenterology follow-up. - The etiology is related to prior alcohol use. He is not currently on any pancreatic enzyme supplementation. - This can be reassessed postoperatively. Current tobacco use (chronic) - Discussed how cessation efforts will benefit in reducing his risk for future inflammatory episodes. - He is motivated to quit. Subjective This 49-year-old gentleman presented to the emergency room with an approximate two-day history of abdominal pain associated with nausea and vomiting. His past medical history is significant for chronic pancreatitis related to prior alcohol use. On review of systems, he affirmed abdominal pain with nausea and vomiting but denied fever, chills, eye symptoms, ear, nose, or throat symptoms, cough, dyspnea, chest pain, edema, diarrhea, dysuria, back pain, neck pain, rashes, or dizziness. Home medications Bupropion/naloxone 8-2 mg tab daily Semaglutide pen one dose monthly Testosterone 0.25 mg weekly Ubrelvy two tab PRN daily Bupropion 300 mg daily Ondansetron 4 mg tab q8hr PRN Physical examination Neurological Alert and oriented times three with normal thought process and normal thought content. Cardiovascular Normal S1/S2 with no murmurs or gallops. No JVD elevation or hepatojugular reflux. No dependent edema. No carotid bruit. Bilateral radial pulses are +2 and equivalent. Bilateral DP pulses are +2 and equivalent. Respiratory Clear auscultation bilaterally. No wheezing, rales, or rhonchi. Abdominal Soft, tender Musculoskeletal No gross deformities. Normal gait and balance. Lab and Studies Reviewed - Complete blood count (03/04/2025): Hemoglobin 13.3, hematocrit 39, WBC 13.4, platelets 227. Independently reviewed and interpreted by me. - Basic Metabolic Panel (03/04/2025): Sodium 138, potassium 3.4, chloride 102, bicarb 28, BUN 9, creatinine 1.0. Independently reviewed and interpreted by me. - Abdominal Ultrasound (03/05/2025): Notes a thickened appendix with periappendiceal fat stranding, with findings suggestive of possible appendicitis. No chronic calcified pancreatitis. Independently reviewed and interpreted by me. - Abdominal CT (03/05/2025): Imaging findings are concerning for appendicitis. Independently reviewed and interpreted by me. Notes reviewed Emergency room documentation from 03/04/2025 was reviewed, which noted abnormal ultrasound imaging and leukocytosis. MDM Summary 1. Number and Complexity of Problems Addressed (CoPA): - High Complexity: Reasoning for the option selected: The patient presents with an acute illness (acute appendicitis) that poses a threat to bodily function, requiring surgical intervention. He also has a chronic illness (chronic pancreatitis) with a severe exacerbation or new problem contributing to the high-risk nature of his presentation. 2. Amount and/or Complexity of Data to be Reviewed and Analyzed (Data): - Extensive: Reasoning for the option selected: Multiple diagnostic tests were reviewed and interpreted, including a CBC, BMP, abdominal ultrasound, and abdominal CT scan. Additionally, external records from the emergency room visit were reviewed. This amounts to three or more data points analyzed. 3. Risk of Complications, Morbidity, and/or Mortality (Risk): - High Risk: Reasoning for the option selected: The management plan involves major surgery (appendectomy) with identified risk factors. The patient has also received parenteral medications (IV Dilaudid, IV Zosyn), and there is consideration for escalation of care to a surgical level. The decision for surgery itself places the patient in a high-risk category. - Review of Systems Constitutional: No Symptoms Eyes: No Symptoms Ears, Nose, & Throat: No Symptoms Respiratory: No Symptoms Cardiac: No Symptoms Abdominal/Gastrointestinal: Abdominal Pain, Nausea, No Diarrhea, No Hematochezia, No Melena Genitourinary Symptoms: No Symptoms Musculoskeletal: No Symptoms Skin: No Symptoms Neurological: No Symptoms Psychological: No Symptoms Endocrine: No Symptoms Hematologic/Lymphatic: No Symptoms Immunological/Allergic: No Symptoms All Other Systems: Reviewed and Negative Medications & Allergies Home Medications: Home Medication List Buprenorphine HCl/Naloxone HCl [Buprenorphine-Nalox 8-2 mg Tab] 2 tab SL DAILY 07/08/23 [History Confirmed 03/04/25] Galcanezumab-Gnlm [Emgality Pen] 1 dose SQ . MONTHLY 07/08/23 [History Confirmed 03/04/25] Testosterone Cypionate 0.25 mg SQ WEEKLY 07/08/23 [History Confirmed 03/04/25] Ubrogepant [Ubrelvy] 2 tab PO DAILY PRN PRN 07/08/23 [History Confirmed 03/04/25] buPROPion HCL [Bupropion Xl] 300 mg PO DAILY 03/20/24 [History Confirmed 03/04/25] Ondansetron ODT 4 MG [Zofran Odt 4 mg] 4 mg PO Q8H PRN PRN 03/04/25 [History Confirmed 03/04/25] Allergies/Adverse Reactions: Allergies Allergy/AdvReac Type Severity Reaction Status Date / Time No Known Drug Allergies Allergy Verified 03/04/25 22:02 - Past Medical History Past Medical History: Yes Neurological History: Migraines ENT History: No Pertinent History Cardiac History: No Pertinent History Respiratory History: Sleep Apnea Endocrine Medical History: No Pertinent History Musculoskelatal History: Arthritis GI Medical History: Pancreatitis History: No Pertinent History Pyscho-Social History: Depression Male Reproductive Disorders: Other Comment: c-pap at night, neck, spine and joint problems. depression in the past. alcohol abuse in the past - Past Surgical History Past Surgical History: Yes Neuro Surgical History: No Pertinent History Cardiac History: No Pertinent History Respiratory Surgery: No Pertinent History GI Surgical History: No Pertinent History Genitourinary Surgical Hx: No Pertinent History Musculskeletal Surgical Hx: Other Male Surgical History: No Pertinent History Other Surgical History: carpaltuneel both hands, spinal injection, colonoscopy - Social History Smoking Status: Current every day smoker How long have you smoked: 30 yrs Exposure to second hand smoke: No Alcohol: None Drug Use: none - Social Determinants of Health Will the patient participate in the screening: Yes Do you worry about a steady place to live?: No Do you have any problems with any of the following?: No known problems In the past 12 months,have you had to go without utilities?: No Have you or anyone in your house had to go without enough: No Transportation Issues: No Has anyone in your support network made you feel unsafe?: No Does the patient want assistance with any of the above?: No - Physical Exam Vital Signs: Vital Signs - 24 hr Temp Pulse Resp BP BP Pulse Ox 03/05/25 04:00 99.8 F 65 18 108/72 94 L 03/05/25 01:36 98.4 F 69 18 128/80 98 03/05/25 01:00 77 19 128/78 98 03/05/25 00:30 124/81 97 03/05/25 00:00 66 18 121/88 97 03/04/25 23:30 144/85 96 03/04/25 23:22 142/63 100 03/04/25 23:00 98 H 18 139/87 98 03/04/25 22:30 136/85 99 03/04/25 22:05 99.3 F 60 16 120/87 120/87 97 Results - Labs Lab/Micro Results: Lab Results-Last 24 Hours 03/04/25 03/04/25 03/04/25 Range/Units 22:29 22:35 22:35 WBC 13.4 H (4.23-9.07) x10^3/uL RBC 4.22 L (4.63-6.08) x10^6/uL Hgb 13.3 L (13.7-17.5) g/dL Hct 39.8 L (40.1-51.0) % MCV 94.3 H (79.0-92.2) fL MCH 31.5 (25.7-32.2) pg MCHC 33.4 (32.3-36.5) g/dL RDW 12.2 (11.6-14.4) % Plt Count 227 (163-337) x10^3/uL MPV 10.3 (9.4-12.4) fL Gran % 76.4 H (34.0-67.9) % Immature Gran % (Auto) 0.3 (0.001-0.429) % Nucleat RBC Rel Count 0.0 (0.00-0.2) % Eos # (Auto) 0.09 (0.04-0.54) x10^3/uL Immature Gran # (Auto) 0.04 H (0.001-0.031) x10^3u/L Absolute Lymphs (auto) 2.33 (1.32-3.57) x10^3/uL Absolute Monos (auto) 0.68 (0.30-0.82) x10^3/uL Absolute Nucleated RBC 0.00 (0.00-0.012) x10^3u/L Lymphocytes % 17.4 L (21.8-53.1) % Monocytes % 5.1 L (5.3-12.2) % Eosinophils % 0.7 L (0.8-7.0) % Basophils % 0.1 L (0.2-1.2) % Absolute Granulocytes 10.20 H (1.78-5.38) x10^3/uL Basophils # 0.02 (0.01-0.08) x10^3/uL PT (9.4-12.5) SECONDS INR (0.8-3.0) APTT (25.1-36.5) SECONDS Sodium 138 (135-145) mmol/L Potassium 3.4 L (3.5-5.1) mmol/L Chloride 102 (98-107) mmol/L Carbon Dioxide 28 (22-30) mmol/L Anion Gap 11.5 (5-15) MEQ/L BUN 9 (9-20) mg/dL Creatinine 1.00 (0.66-1.25) mg/dL Estimated GFR 93.4 ML/MIN Glucose 104 (74-106) mg/dL Lactic Acid 0.9 (0.4-2.0) Calcium 9.0 (8.4-10.2) mg/dL Total Bilirubin 0.50 (0.2-1.3) mg/dL AST 41 (17-59) U/L ALT 67 H (0-50) U/L Alkaline Phosphatase 93 (38-126) U/L Serum Total Protein 7.0 (6.3-8.2) g/dL Albumin 4.6 (3.5-5.0) g/dL Lipase 12 L (23-300) U/L Urine Color (Yellow) Urine Appearance (Clear) Urine pH (4.6-8.0) Ur Specific [place] (1.005-1.030) Urine Protein (Negative) Urine Glucose (UA) (Negative) mg/dL Urine Ketones (Negative) Urine Blood (Negative) Urine Nitrite (Negative) Urine Bilirubin (Negative) Urine Urobilinogen (0.2) mg/dL Ur Leukocyte Esterase (Negative) U Hyaline Cast (Auto) (0-2) /LPF Urine Microscopic RBC (0-5) /HPF Urine Microscopic WBC (0-5) /HPF Ur Epithelial Cells (None Seen) /HPF Urine Bacteria (None Seen) /HPF Urine Culture Reflexed (NO) ABO Group Rh Factor Antibody Screen (NEGATIVE) 03/04/25 03/05/25 03/05/25 Range/Units 23:30 00:00 00:39 WBC (4.23-9.07) x10^3/uL RBC (4.63-6.08) x10^6/uL Hgb (13.7-17.5) g/dL Hct (40.1-51.0) % MCV (79.0-92.2) fL MCH (25.7-32.2) pg MCHC (32.3-36.5) g/dL RDW (11.6-14.4) % Plt Count (163-337) x10^3/uL MPV (9.4-12.4) fL Gran % (34.0-67.9) % Immature Gran % (Auto) (0.001-0.429) % Nucleat RBC Rel Count (0.00-0.2) % Eos # (Auto) (0.04-0.54) x10^3/uL Immature Gran # (Auto) (0.001-0.031) x10^3u/L Absolute Lymphs (auto) (1.32-3.57) x10^3/uL Absolute Monos (auto) (0.30-0.82) x10^3/uL Absolute Nucleated RBC (0.00-0.012) x10^3u/L Lymphocytes % (21.8-53.1) % Monocytes % (5.3-12.2) % Eosinophils % (0.8-7.0) % Basophils % (0.2-1.2) % Absolute Granulocytes (1.78-5.38) x10^3/uL Basophils # (0.01-0.08) x10^3/uL PT 11.3 (9.4-12.5) SECONDS INR 1.01 (0.8-3.0) APTT 24.7 L (25.1-36.5) SECONDS Sodium (135-145) mmol/L Potassium (3.5-5.1) mmol/L Chloride (98-107) mmol/L Carbon Dioxide (22-30) mmol/L Anion Gap (5-15) MEQ/L BUN (9-20) mg/dL Creatinine (0.66-1.25) mg/dL Estimated GFR ML/MIN Glucose (74-106) mg/dL Lactic Acid (0.4-2.0) Calcium (8.4-10.2) mg/dL Total Bilirubin (0.2-1.3) mg/dL AST (17-59) U/L ALT (0-50) U/L Alkaline Phosphatase (38-126) U/L Serum Total Protein (6.3-8.2) g/dL Albumin (3.5-5.0) g/dL Lipase (23-300) U/L Urine Color Yellow (Yellow) Urine Appearance Clear (Clear) Urine pH 5.5 (4.6-8.0) Ur Specific [place] 1.015 (1.005-1.030) Urine Protein Negative (Negative) Urine Glucose (UA) Negative (Negative) mg/dL Urine Ketones Negative (Negative) Urine Blood Negative (Negative) Urine Nitrite Negative (Negative) Urine Bilirubin Negative (Negative) Urine Urobilinogen 0.2 (0.2) mg/dL Ur Leukocyte Esterase Trace A (Negative) U Hyaline Cast (Auto) NONE SEEN (0-2) /LPF Urine Microscopic RBC 0-2 (0-5) /HPF Urine Microscopic WBC 0-2 (0-5) /HPF Ur Epithelial Cells None Seen (None Seen) /HPF Urine Bacteria None Seen (None Seen) /HPF Urine Culture Reflexed NO (NO) ABO Group A Rh Factor POSITIVE Antibody Screen NEGATIVE (NEGATIVE) 03/05/25 03/05/25 Range/Units 04:36 04:36 WBC 11.1 H (4.23-9.07) x10^3/uL RBC 3.76 L (4.63-6.08) x10^6/uL Hgb 11.8 L (13.7-17.5) g/dL Hct 34.7 L (40.1-51.0) % MCV 92.3 H (79.0-92.2) fL MCH 31.4 (25.7-32.2) pg MCHC 34.0 (32.3-36.5) g/dL RDW 12.3 (11.6-14.4) % Plt Count 199 (163-337) x10^3/uL MPV 10.2 (9.4-12.4) fL Gran % 71.5 H (34.0-67.9) % Immature Gran % (Auto) 0.4 (0.001-0.429) % Nucleat RBC Rel Count 0.0 (0.00-0.2) % Eos # (Auto) 0.09 (0.04-0.54) x10^3/uL Immature Gran # (Auto) 0.04 H (0.001-0.031) x10^3u/L Absolute Lymphs (auto) 2.35 (1.32-3.57) x10^3/uL Absolute Monos (auto) 0.67 (0.30-0.82) x10^3/uL Absolute Nucleated RBC 0.00 (0.00-0.012) x10^3u/L Lymphocytes % 21.2 L (21.8-53.1) % Monocytes % 6.0 (5.3-12.2) % Eosinophils % 0.8 (0.8-7.0) % Basophils % 0.1 L (0.2-1.2) % Absolute Granulocytes 7.95 H (1.78-5.38) x10^3/uL Basophils # 0.01 (0.01-0.08) x10^3/uL PT (9.4-12.5) SECONDS INR (0.8-3.0) APTT (25.1-36.5) SECONDS Sodium 138 (135-145) mmol/L Potassium 3.7 (3.5-5.1) mmol/L Chloride 106 (98-107) mmol/L Carbon Dioxide 26 (22-30) mmol/L Anion Gap 9.0 (5-15) MEQ/L BUN 8 L (9-20) mg/dL Creatinine 0.93 (0.66-1.25) mg/dL Estimated GFR 101.9 ML/MIN Glucose 101 (74-106) mg/dL Lactic Acid (0.4-2.0) Calcium 8.3 L (8.4-10.2) mg/dL Total Bilirubin 0.60 (0.2-1.3) mg/dL AST 30 (17-59) U/L ALT 50 (0-50) U/L Alkaline Phosphatase 80 (38-126) U/L Serum Total Protein 5.6 L (6.3-8.2) g/dL Albumin 3.5 (3.5-5.0) g/dL Lipase (23-300) U/L Urine Color (Yellow) Urine Appearance (Clear) Urine pH (4.6-8.0) Ur Specific [place] (1.005-1.030) Urine Protein (Negative) Urine Glucose (UA) (Negative) mg/dL Urine Ketones (Negative) Urine Blood (Negative) Urine Nitrite (Negative) Urine Bilirubin (Negative) Urine Urobilinogen (0.2) mg/dL Ur Leukocyte Esterase (Negative) U Hyaline Cast (Auto) (0-2) /LPF Urine Microscopic RBC (0-5) /HPF Urine Microscopic WBC (0-5) /HPF Ur Epithelial Cells (None Seen) /HPF Urine Bacteria (None Seen) /HPF Urine Culture Reflexed (NO) ABO Group Rh Factor Antibody Screen (NEGATIVE) - Radiology Impressions Radiology Exams & Impressions: Radiology Procedures Category Date Time Status ABDOMEN AND PELVIS W CONTRAST [CT] Stat Exams 03/04/25 22:04 Completed Telemedicine Encounter - Telemedicine Encounter Telemedicine Encounter: "The entirety of this encounter was performed via Telemedicine" This visit was performed using real-time audio and video connection between my location and thepatients locationwith the assistance of a surrogateat the patients location. Written or verbal consent was obtained from the patient/guardian to perform this visit using[employer] technology. Any patient questions regarding the telemedicine interaction were answered.
--- NOTE | 2025-03-05 05:46 | PCM.NOTE ---
Date and Time: 03/05/25 0544 Subjective Assessment: Mr. Aguilar is a 49 year old male with a pmhx of TONIE (CPAP), anxiety/depression, and chronic pancreatitis secondary to prior alcohol use, who presented to the emergency department 03/04/25 with a two-day history of worsening abdominal pain associated with nausea and vomiting. He denied fever, chills, chest pain, dyspnea, diarrhea, or urinary symptoms. On arrival, his temperature was 99.3F and other vital signs were stable. Laboratory evaluation revealed a WBC of 13.4. CMP was notable for mild hypokal emia (K 3.4 ), with normal sodium (138 ), chloride (102 ), bicarbonate (28 ), BUN (9 ), and creatinine (1.0 ), consistent with preserved renal function and no metabolic derangement. Abdominal CT demonstrated a thickened appendix with periappendiceal fat stranding suggestive of acute appendicitis; and findings consistent with chronic calcific pancreatitis. This was further confirmed by abdominal CT, which revealed imaging findings highly concerning for acute appendicitis. Blood cultures were drawn, and empiric IV piperacillin-tazobactam was initiated for broad-spectrum coverage. The patient was maintained NPO with intravenous hydrationan initial bolus followed by 100 cc/hour maintenance fluidsand analgesia was provided with IV Dilaudid. The emergency physician coordinated with surgery, and an appendectomy is planned for 03/05/25. 03/05/25: Met with patient and spouse. Endorses continued abdominal pain. No nausea/vomiting overnight. Plan for appendectomy this morning. Continue IV Zosyn for now pending surgery recommendations. - Review of Systems Constitutional: No Symptoms Eyes: No Symptoms Ears, Nose, & Throat: No Symptoms Respiratory: No Symptoms Cardiac: No Symptoms Abdominal/Gastrointestinal: Abdominal Pain Genitourinary Symptoms: No Symptoms Musculoskeletal: No Symptoms Skin: No Symptoms Neurological: No Symptoms Psychological: No Symptoms Endocrine: No Symptoms Hematologic/Lymphatic: No Symptoms Immunological/Allergic: No Symptoms Objective Exam General Appearance: no apparent distress Neurologic Exam: alert, oriented x 3, cooperative Skin Exam: normal color Eye Exam: PERRL Ears, Nose, Throat Exam: normal ENT inspection Neck Exam: normal inspection Respiratory Exam: normal breath sounds, lungs clear Cardiovascular Exam: regular rate/rhythm, normal heart sounds Gastrointestinal/Abdomen Exam: soft, normal bowel sounds, tenderness Extremity Exam: normal inspection Back Exam: normal inspection Male Genitalia Exam: deferred Rectal Exam: deferred Objective Data Vital Signs: Vital Signs - 24 hr Temp Pulse Resp BP BP Pulse Ox 03/05/25 04:00 99.8 F 65 18 108/72 94 L 03/05/25 01:36 98.4 F 69 18 128/80 98 03/05/25 01:00 77 19 128/78 98 03/05/25 00:30 124/81 97 03/05/25 00:00 66 18 121/88 97 03/04/25 23:30 144/85 96 03/04/25 23:22 142/63 100 03/04/25 23:00 98 H 18 139/87 98 03/04/25 22:30 136/85 99 03/04/25 22:05 99.3 F 60 16 120/87 120/87 97 Pain Assessment - Last Documented Pain Intensity 4 Pain Scale Used 0-10 Pain Scale Intake and Output: Intake & Output 03/02/25 03/03/25 03/04/25 03/05/25 11:59 11:59 11:59 11:59 Weight 82.1 kg Lab Results: Lab Results-Last 24 Hours 03/04/25 03/04/25 03/04/25 Range/Units 22:29 22:35 22:35 WBC 13.4 H (4.23-9.07) x10^3/uL RBC 4.22 L (4.63-6.08) x10^6/uL Hgb 13.3 L (13.7-17.5) g/dL Hct 39.8 L (40.1-51.0) % MCV 94.3 H (79.0-92.2) fL MCH 31.5 (25.7-32.2) pg MCHC 33.4 (32.3-36.5) g/dL RDW 12.2 (11.6-14.4) % Plt Count 227 (163-337) x10^3/uL MPV 10.3 (9.4-12.4) fL Gran % 76.4 H (34.0-67.9) % Immature Gran % (Auto) 0.3 (0.001-0.429) % Nucleat RBC Rel Count 0.0 (0.00-0.2) % Eos # (Auto) 0.09 (0.04-0.54) x10^3/uL Immature Gran # (Auto) 0.04 H (0.001-0.031) x10^3u/L Absolute Lymphs (auto) 2.33 (1.32-3.57) x10^3/uL Absolute Monos (auto) 0.68 (0.30-0.82) x10^3/uL Absolute Nucleated RBC 0.00 (0.00-0.012) x10^3u/L Lymphocytes % 17.4 L (21.8-53.1) % Monocytes % 5.1 L (5.3-12.2) % Eosinophils % 0.7 L (0.8-7.0) % Basophils % 0.1 L (0.2-1.2) % Absolute Granulocytes 10.20 H (1.78-5.38) x10^3/uL Basophils # 0.02 (0.01-0.08) x10^3/uL PT (9.4-12.5) SECONDS INR (0.8-3.0) APTT (25.1-36.5) SECONDS Sodium 138 (135-145) mmol/L Potassium 3.4 L (3.5-5.1) mmol/L Chloride 102 (98-107) mmol/L Carbon Dioxide 28 (22-30) mmol/L Anion Gap 11.5 (5-15) MEQ/L BUN 9 (9-20) mg/dL Creatinine 1.00 (0.66-1.25) mg/dL Estimated GFR 93.4 ML/MIN Glucose 104 (74-106) mg/dL Lactic Acid 0.9 (0.4-2.0) Calcium 9.0 (8.4-10.2) mg/dL Total Bilirubin 0.50 (0.2-1.3) mg/dL AST 41 (17-59) U/L ALT 67 H (0-50) U/L Alkaline Phosphatase 93 (38-126) U/L Serum Total Protein 7.0 (6.3-8.2) g/dL Albumin 4.6 (3.5-5.0) g/dL Lipase 12 L (23-300) U/L Urine Color (Yellow) Urine Appearance (Clear) Urine pH (4.6-8.0) Ur Specific [place] (1.005-1.030) Urine Protein (Negative) Urine Glucose (UA) (Negative) mg/dL Urine Ketones (Negative) Urine Blood (Negative) Urine Nitrite (Negative) Urine Bilirubin (Negative) Urine Urobilinogen (0.2) mg/dL Ur Leukocyte Esterase (Negative) U Hyaline Cast (Auto) (0-2) /LPF Urine Microscopic RBC (0-5) /HPF Urine Microscopic WBC (0-5) /HPF Ur Epithelial Cells (None Seen) /HPF Urine Bacteria (None Seen) /HPF Urine Culture Reflexed (NO) ABO Group Rh Factor Antibody Screen (NEGATIVE) 03/04/25 03/05/25 03/05/25 Range/Units 23:30 00:00 00:39 WBC (4.23-9.07) x10^3/uL RBC (4.63-6.08) x10^6/uL Hgb (13.7-17.5) g/dL Hct (40.1-51.0) % MCV (79.0-92.2) fL MCH (25.7-32.2) pg MCHC (32.3-36.5) g/dL RDW (11.6-14.4) % Plt Count (163-337) x10^3/uL MPV (9.4-12.4) fL Gran % (34.0-67.9) % Immature Gran % (Auto) (0.001-0.429) % Nucleat RBC Rel Count (0.00-0.2) % Eos # (Auto) (0.04-0.54) x10^3/uL Immature Gran # (Auto) (0.001-0.031) x10^3u/L Absolute Lymphs (auto) (1.32-3.57) x10^3/uL Absolute Monos (auto) (0.30-0.82) x10^3/uL Absolute Nucleated RBC (0.00-0.012) x10^3u/L Lymphocytes % (21.8-53.1) % Monocytes % (5.3-12.2) % Eosinophils % (0.8-7.0) % Basophils % (0.2-1.2) % Absolute Granulocytes (1.78-5.38) x10^3/uL Basophils # (0.01-0.08) x10^3/uL PT 11.3 (9.4-12.5) SECONDS INR 1.01 (0.8-3.0) APTT 24.7 L (25.1-36.5) SECONDS Sodium (135-145) mmol/L Potassium (3.5-5.1) mmol/L Chloride (98-107) mmol/L Carbon Dioxide (22-30) mmol/L Anion Gap (5-15) MEQ/L BUN (9-20) mg/dL Creatinine (0.66-1.25) mg/dL Estimated GFR ML/MIN Glucose (74-106) mg/dL Lactic Acid (0.4-2.0) Calcium (8.4-10.2) mg/dL Total Bilirubin (0.2-1.3) mg/dL AST (17-59) U/L ALT (0-50) U/L Alkaline Phosphatase (38-126) U/L Serum Total Protein (6.3-8.2) g/dL Albumin (3.5-5.0) g/dL Lipase (23-300) U/L Urine Color Yellow (Yellow) Urine Appearance Clear (Clear) Urine pH 5.5 (4.6-8.0) Ur Specific [place] 1.015 (1.005-1.030) Urine Protein Negative (Negative) Urine Glucose (UA) Negative (Negative) mg/dL Urine Ketones Negative (Negative) Urine Blood Negative (Negative) Urine Nitrite Negative (Negative) Urine Bilirubin Negative (Negative) Urine Urobilinogen 0.2 (0.2) mg/dL Ur Leukocyte Esterase Trace A (Negative) U Hyaline Cast (Auto) NONE SEEN (0-2) /LPF Urine Microscopic RBC 0-2 (0-5) /HPF Urine Microscopic WBC 0-2 (0-5) /HPF Ur Epithelial Cells None Seen (None Seen) /HPF Urine Bacteria None Seen (None Seen) /HPF Urine Culture Reflexed NO (NO) ABO Group A Rh Factor POSITIVE Antibody Screen NEGATIVE (NEGATIVE) 03/05/25 03/05/25 Range/Units 04:36 04:36 WBC 11.1 H (4.23-9.07) x10^3/uL RBC 3.76 L (4.63-6.08) x10^6/uL Hgb 11.8 L (13.7-17.5) g/dL Hct 34.7 L (40.1-51.0) % MCV 92.3 H (79.0-92.2) fL MCH 31.4 (25.7-32.2) pg MCHC 34.0 (32.3-36.5) g/dL RDW 12.3 (11.6-14.4) % Plt Count 199 (163-337) x10^3/uL MPV 10.2 (9.4-12.4) fL Gran % 71.5 H (34.0-67.9) % Immature Gran % (Auto) 0.4 (0.001-0.429) % Nucleat RBC Rel Count 0.0 (0.00-0.2) % Eos # (Auto) 0.09 (0.04-0.54) x10^3/uL Immature Gran # (Auto) 0.04 H (0.001-0.031) x10^3u/L Absolute Lymphs (auto) 2.35 (1.32-3.57) x10^3/uL Absolute Monos (auto) 0.67 (0.30-0.82) x10^3/uL Absolute Nucleated RBC 0.00 (0.00-0.012) x10^3u/L Lymphocytes % 21.2 L (21.8-53.1) % Monocytes % 6.0 (5.3-12.2) % Eosinophils % 0.8 (0.8-7.0) % Basophils % 0.1 L (0.2-1.2) % Absolute Granulocytes 7.95 H (1.78-5.38) x10^3/uL Basophils # 0.01 (0.01-0.08) x10^3/uL PT (9.4-12.5) SECONDS INR (0.8-3.0) APTT (25.1-36.5) SECONDS Sodium 138 (135-145) mmol/L Potassium 3.7 (3.5-5.1) mmol/L Chloride 106 (98-107) mmol/L Carbon Dioxide 26 (22-30) mmol/L Anion Gap 9.0 (5-15) MEQ/L BUN 8 L (9-20) mg/dL Creatinine 0.93 (0.66-1.25) mg/dL Estimated GFR 101.9 ML/MIN Glucose 101 (74-106) mg/dL Lactic Acid (0.4-2.0) Calcium 8.3 L (8.4-10.2) mg/dL Total Bilirubin 0.60 (0.2-1.3) mg/dL AST 30 (17-59) U/L ALT 50 (0-50) U/L Alkaline Phosphatase 80 (38-126) U/L Serum Total Protein 5.6 L (6.3-8.2) g/dL Albumin 3.5 (3.5-5.0) g/dL Lipase (23-300) U/L Urine Color (Yellow) Urine Appearance (Clear) Urine pH (4.6-8.0) Ur Specific [place] (1.005-1.030) Urine Protein (Negative) Urine Glucose (UA) (Negative) mg/dL Urine Ketones (Negative) Urine Blood (Negative) Urine Nitrite (Negative) Urine Bilirubin (Negative) Urine Urobilinogen (0.2) mg/dL Ur Leukocyte Esterase (Negative) U Hyaline Cast (Auto) (0-2) /LPF Urine Microscopic RBC (0-5) /HPF Urine Microscopic WBC (0-5) /HPF Ur Epithelial Cells (None Seen) /HPF Urine Bacteria (None Seen) /HPF Urine Culture Reflexed (NO) ABO Group Rh Factor Antibody Screen (NEGATIVE) Radiology Exams: Radiology Procedures Category Date Time Status ABDOMEN AND PELVIS W CONTRAST [CT] Stat Exams 03/04/25 22:04 Completed Medications: Medications Generic Name Dose Route Start Last Admin Trade Name Freq PRN Reason Stop Dose Admin Hydromorphone HCl 0.5 mg 03/05/25 05:00 03/05/25 05:07 Hydromorphone 1 Mg/1ml Inj IV 03/05/25 05:01 0.5 mg ONCE ONE Administration Sodium Chloride 1,000 mls @ 100 mls/hr 03/05/25 00:15 03/05/25 00:38 Sodium Chloride 0.9% 1000 Ml IV 04/04/25 00:14 100 mls/hr .Q10H ANITA Administration Sodium Chloride 1,000 mls @ 999 mls/hr 03/05/25 05:00 03/05/25 05:31 Sodium Chloride 0.9% 1000 Ml IV 04/04/25 04:59 999 mls/hr .Q1H1M ANITA Administration Piperacillin Sod/Tazobactam 100 mls @ 200 mls/hr 03/05/25 06:00 Sod 3.375 gm/ Sodium Chloride IV 03/08/25 05:59 Q6HT ANITA Non-Formulary Medication 2 tab 03/05/25 10:00 Buprenorphine Hcl/Naloxone Hcl [Buprenorphine-Nalox 8-2 Mg Tab] SL 04/04/25 09:59 DAILY ANITA Non-Formulary Medication 300 mg 03/05/25 10:00 Bupropion Hcl [Bupropion Xl] PO 04/04/25 09:59 DAILY ANITA Discontinued Medications Generic Name Dose Route Start Last Admin Trade Name Freq PRN Reason Stop Dose Admin Famotidine 20 mg 03/04/25 22:03 03/04/25 22:21 Famotidine 20 Mg/1 Vial IV 03/04/25 22:04 20 mg STAT ONE Administration Famotidine Confirm 03/04/25 22:17 Famotidine 20 Mg/1 Vial Administered 03/04/25 22:18 Dose 20 mg IV .STK-MED ONE Hydromorphone HCl 0.5 mg 03/04/25 23:27 03/04/25 23:31 Hydromorphone 1 Mg/1ml Inj IV 03/04/25 23:28 0.5 mg STAT ONE Administration Hydromorphone HCl Confirm 03/04/25 23:30 Hydromorphone 1 Mg/1ml Inj Administered 03/04/25 23:31 Dose 1 mg .ROUTE .STK-MED ONE Sodium Chloride 1,000 mls @ 999 mls/hr 03/04/25 22:03 03/04/25 23:21 Sodium Chloride 0.9% 1000 Ml IV 03/04/25 23:03 Infused .Q1H1M STA Infusion Sodium Chloride Confirm 03/04/25 22:17 Sodium Chloride 0.9% 1000 Ml Administered 03/04/25 22:18 Dose 1,000 mls @ ud .ROUTE .STK-MED ONE Piperacillin Sod/Tazobactam 100 mls @ 200 mls/hr 03/05/25 00:06 03/05/25 01:00 Sod 3.375 gm/ Sodium Chloride IV 03/05/25 00:35 Infused STAT STA Infusion Sodium Chloride Confirm 03/05/25 00:26 Sodium Chloride 0.9% Administered 03/05/25 00:27 Dose 100 mls @ ud .ROUTE .STK-MED ONE Morphine Sulfate 4 mg 03/04/25 22:06 03/04/25 22:21 Morphine Sulfate 4 Mg/Ml Injection IV 03/04/25 22:07 4 mg STAT ONE Administration Morphine Sulfate Confirm 03/04/25 22:17 Morphine Sulfate 4 Mg/Ml Injection Administered 03/04/25 22:18 Dose 4 mg .ROUTE .STK-MED ONE Ondansetron HCl 4 mg 03/04/25 22:03 03/04/25 22:21 Ondansetron Hcl 4 Mg/2 Ml Vial IV 03/04/25 22:04 4 mg STAT ONE Administration Ondansetron HCl Confirm 03/04/25 22:17 Ondansetron Hcl 4 Mg/2 Ml Vial Administered 03/04/25 22:18 Dose 4 mg .ROUTE .STK-MED ONE Piperacillin Sod/Tazobactam Sod Confirm 03/05/25 00:26 Piperacillin/Tazobactam Sodium 3.375 Gm Vial Administered 03/05/25 00:27 Dose 3.375 gm IV .STK-MED ONE Assessment/Plan (1) Appendicitis Current Visit: Yes Status: Acute Qualifiers: Appendicitis type: acute appendicitis Acute appendicitis type: unspecified acute appendicitis type Qualified Code(s): K35.80 - Unspecified acute appendicitis Assessment & Plan: -Supported by leukocytosis (WBC 13.4) and imaging showing thickened appendix with periappendiceal stranding on CT. -WBC reviewed and now at 11.1 -Continue IV Zosyn empirically pending cultures; maintain NPO; continue IV fluids (100 cc/hour after bolus); provide analgesia (IV Dilaudid PRN); monitor for clinical changes or peritoneal signs. -Surgical consultation obtained; appendectomy scheduled for today -Monitor postoperatively for infection, electrolyte abnormalities, or ileus. Code(s): K37 - UNSPECIFIED APPENDICITIS (2) Chronic pancreatitis Current Visit: Yes Status: Acute Assessment & Plan: -No acute flare on imaging or labs -Lipase low -Reinforce abstinence from alcohol and optimize nutrition. -Reassess need for pancreatic enzyme replacement postoperatively. -Outpatient gastroenterology follow-up recommended for long-term management and surveillance Code(s): K86.1 - OTHER CHRONIC PANCREATITIS (3) Smoker Current Visit: Yes Status: Acute Assessment & Plan: -Patient counseled on smoking cessation, particularly given underlying pancreatic disease and surgical risk. -Offer nicotine replacement therapy or referral to cessation program during hospitalization or at discharge. Code(s): F17.200 - NICOTINE DEPENDENCE, UNSPECIFIED, UNCOMPLICATED (4) TONIE (obstructive sleep apnea) Current Visit: Yes Status: Acute Assessment & Plan: -CPAP while in hospital VTE: SCD PPI: protonix Dispo: 1-2 daus Plan of care time spent > 40 mins Code(s): G47.33 - OBSTRUCTIVE SLEEP APNEA (ADULT) (PEDIATRIC)
[2025-03-05] MEDS ORDERED: MEDICATION INTERVENTION MC SCH (07:15)
[2025-03-05] MEDS ORDERED: Lactated Ringers 1,000 ML IV ONE (08:22)
[2025-03-05] MEDS ORDERED: Sensorcaine 0.25% 10 ML ONE ×2 (08:22→08:24)
[2025-03-05] MEDS ORDERED: OFIRMEV IV ONE (08:26)
[2025-03-05] MEDS ORDERED: Versed 2 MG/2 ML Injection ONE ×2 (08:30)
[2025-03-05] MEDS ORDERED: propofoL IV ONE (08:30)
[2025-03-05] MEDS ORDERED: SUBLIMAZE 100 MCG/2 ML ONE ×2 (08:31→08:32)
[2025-03-05] MEDS ORDERED: Quelicin Fliptop 200 MG/10 ML ONE (08:34)
[2025-03-05] MEDS ORDERED: ROCURONIUM BROMIDE IV ONE (08:35)
[2025-03-05] MEDS ORDERED: Ketamine HCl 50 MG/ML ONE (08:48)
[2025-03-05] MEDS ORDERED: Zofran 4 MG/2 ML VIAL ONE (08:57)
[2025-03-05] MEDS ORDERED: TORAdol 30 mg Injection ONE (08:57)
[2025-03-05] MEDS ORDERED: EXPAREL 133 MG/10 ML VIAL IJ ONE (08:59)
[2025-03-05] MEDS ORDERED: Marcaine Mpf 0.5% Vial 30 Ml ONE (08:59)
[2025-03-05] MEDS ORDERED: BRIDION 200MG/2ML IV ONE (09:02)
[2025-03-05] MEDS ORDERED: BUPROPION HCL 300 MG PO SCH (10:00)
[2025-03-05] MEDS ORDERED: NON-FORMULARY ITEM (Buprenorphine Hcl/Naloxone Hcl [Buprenorphine-Nalox 8-2 Mg Tab] 1 EACH SL SCH (10:00)
[2025-03-05] MEDS: Wellbutrin XL 150 MG PO SCH (10:18)
[2025-03-05] MEDS ORDERED: MORPHINE SULFATE 4 MG INJ IV PRN (10:39)
[2025-03-05] MEDS ORDERED: NORCO 5/325 MG PO PRN (10:39)
[2025-03-05] MEDS ORDERED: Zofran 4 MG/2 ML VIAL IV PRN (10:40)
[2025-03-05] MEDS ORDERED: TORAdol 30 mg Injection IV PRN (10:41)
[2025-03-05] MEDS: PATIENT OWN MEDICATION SL PRN (13:56)
[2025-03-06] MEDS: TORAdol 30 mg Injection IV ONE (02:34)
[2025-03-06 03:41] VITALS: RESP 16
[2025-03-06 04:36] LABS: BASOPHIL % 0.2 % (0.2-1.2); Basophil (Absolute #) 0.02 x10^3/uL (0.01-0.08); Eosinophil (Absolute #) 0.08 x10^3/uL (0.04-0.54); Hematocrit 31.9 % (40.1-51.0); Hemoglobin 10.6 g/dL (13.7-17.5); IMMATURE GRAN # 0.01 x10^3u/L (0.001-0.031); IMMATURE GRAN % 0.1 % (0.001-0.429); Lymphocyte (Absolute #) 1.71 x10^3/uL (1.32-3.57); Mean Corpuscular Hemoglobin 31.5 pg (25.7-32.2); Mean Corpuscular Hgb Concent. 33.2 g/dL (32.3-36.5); Monocyte (Absolute #) 0.53 x10^3/uL (0.30-0.82); NUCLEATED RBC # 0.00 x10^3u/L (0.00-0.012); NUCLEATED RBC % 0.0 % (0.00-0.2); Platelet Count 184 x10^3/uL (163-337); Red Blood Count 3.36 x10^6/uL (4.63-6.08); White Blood Count 8.5 x10^3/uL (4.23-9.07)
[2025-03-06 05:02] LABS: Calcium 7.9 mg/dL (8.4-10.2); Carbon Dioxide 25.0 mmol/L (22-30); Creatinine 1 1.03 mg/dL (0.66-1.25); EST GLOMERULAR FILTRATION RATE 90.2 ML/MIN; Glucose 121.0 mg/dL (74-106); Potassium 3.7 mmol/L (3.5-5.1); SGOT/AST 31.0 U/L (17-59); SGPT/ALT 46.0 U/L (0-50); Total Protein 5.2 g/dL (6.3-8.2)
[2025-03-06 07:13] VITALS: BP 120/73; PULSE 51; TEMP 98.4; O2SAT 98
--- NOTE | 2025-03-06 09:43 | PCM.DS ---
Discharge Summary Date of Admission: 03/05/25 01:04 Date of Discharge: 03/06/25 Admitting Physician: GABRIELA DELGADO MD Consults: Consults on Case 03/05/25 00:47 Consult Surgery ROUTINE Primary Care Provider: FREDDIE BAR I Allergies Allergies No Known Drug Allergies Allergy (Verified 03/04/25 22:02) Hospital Summary - Hospital Course Hospital Course: Mr. Aguilar, a 49-year-old male with a history of obstructive sleep apnea (on CPAP), chronic pancreatitis secondary to prior alcohol use, anxiety/depression, and nicotine dependence, presented on 03/04/25 with a two-day history of progressive right lower quadrant abdominal pain, associated with nausea and vomiting. He denied fevers, chills, chest pain, dyspnea, diarrhea, or urinary symptoms. On arrival, his temperature was 99.3F, with otherwise stable vital signs. Laboratory evaluation showed WBC 13.4, consistent with a mild leukocytosis, and CMP notable for mild hypokalemia (K 3.4 mmol/L) with preserved renal function (Na 138, Cl 102, CO? 28, BUN 9, Cr 1.0). CT abdomen/pelvis with contrast demonstrated a thickened appendix with periappendiceal fat stranding, confirming acute appendicitis, and incidentally noted chronic calcific pancreatitis. Blood cultures were drawn, and empiric IV piperacillintazobactam (Zosyn) was initiated. The patient was kept NPO, given IV fluids (initial bolus followed by 100 mL/hr maintenance), and received IV Dilaudid as needed for pain control. General surgery was consulted, and an appendectomy was scheduled for 03/05/25. On 03/05/25, he underwent laparoscopic appendectomy without intraoperative complications. Postoperatively, he reported improvement in pain, was tolerating diet, ambulating well, and hemodynamically stable. Repeat WBC decreased to 8.5 on 03/06/25, and CMP normalized. Surgical team cleared him for discharge with oral Augmentin and Clothier for pain control. The patient was counseled on smoking cessation and alcohol abstinence, advised to continue home CPAP, and given detailed discharge and wound care instructions. He will follow up with surgery as an outpatient. Discharge Note New Diagnosis: Acute appendicitis New Medications: Clothier/Augmentin (per surgery- sent to pharmacy) Follow Up: PCP/Surgery I spent 35 minutes [id number] with the patient on the day of discharge performing discharge exam, discussing hospital stay and discharge instructions with patient and caregivers, preparation of discharge records, prescriptions & referral forms and addressing any questions/concerns the patient had as documented above. - Vitals & Intake/Output Vital Signs: Vital Signs Temperature 98.4 F 03/06/25 07:00 Pulse Rate 51 L 03/06/25 07:00 Respiratory Rate 16 03/06/25 07:00 Blood Pressure 120/73 03/06/25 07:00 O2 Sat by Pulse Oximetry 98 03/06/25 07:00 Intake & Output: Intake & Output 03/03/25 03/04/25 03/05/25 03/06/25 11:59 11:59 11:59 11:59 Intake Total 4779 Output Total 600 Balance 4179 Weight 82.1 kg - Lab Result Diagrams: 03/06/25 04:19 03/06/25 04:19 Lab Results-Last 24 Hrs: Lab Results-Last 24 Hours 03/06/25 03/06/25 Range/Units 04:19 04:19 WBC 8.5 (4.23-9.07) x10^3/uL RBC 3.36 L (4.63-6.08) x10^6/uL Hgb 10.6 L (13.7-17.5) g/dL Hct 31.9 L (40.1-51.0) % MCV 94.9 H (79.0-92.2) fL MCH 31.5 (25.7-32.2) pg MCHC 33.2 (32.3-36.5) g/dL RDW 12.7 (11.6-14.4) % Plt Count 184 (163-337) x10^3/uL MPV 10.2 (9.4-12.4) fL Gran % 72.3 H (34.0-67.9) % Immature Gran % (Auto) 0.1 (0.001-0.429) % Nucleat RBC Rel Count 0.0 (0.00-0.2) % Eos # (Auto) 0.08 (0.04-0.54) x10^3/uL Immature Gran # (Auto) 0.01 (0.001-0.031) x10^3u/L Absolute Lymphs (auto) 1.71 (1.32-3.57) x10^3/uL Absolute Monos (auto) 0.53 (0.30-0.82) x10^3/uL Absolute Nucleated RBC 0.00 (0.00-0.012) x10^3u/L Lymphocytes % 20.2 L (21.8-53.1) % Monocytes % 6.3 (5.3-12.2) % Eosinophils % 0.9 (0.8-7.0) % Basophils % 0.2 (0.2-1.2) % Absolute Granulocytes 6.10 H (1.78-5.38) x10^3/uL Basophils # 0.02 (0.01-0.08) x10^3/uL Sodium 138 (135-145) mmol/L Potassium 3.7 (3.5-5.1) mmol/L Chloride 109 H (98-107) mmol/L Carbon Dioxide 25 (22-30) mmol/L Anion Gap 6.9 (5-15) MEQ/L BUN 10 (9-20) mg/dL Creatinine 1.03 (0.66-1.25) mg/dL Estimated GFR 90.2 ML/MIN Glucose 121 H (74-106) mg/dL Calcium 7.9 L (8.4-10.2) mg/dL Total Bilirubin 0.30 (0.2-1.3) mg/dL AST 31 (17-59) U/L ALT 46 (0-50) U/L Alkaline Phosphatase 76 (38-126) U/L Serum Total Protein 5.2 L (6.3-8.2) g/dL Albumin 3.1 L (3.5-5.0) g/dL Micro Results-Entire Visit: Microbiology 03/05/25 00:39 Blood Culture - Preliminary Blood - Radiology Exams Ordered Rad Exams-Entire Visit: Radiology Procedures Category Date Time Status ABDOMEN AND PELVIS W CONTRAST [CT] Stat Exams 03/04/25 22:04 Completed - Procedures and Test Procedures and Tests throughout Hospitalization: Therapy Orders & Screens 03/05/25 02:06 Smoking Cessation Education ONCE Comment: Diagnosis: appendicitis Smoking Status: Current every day smoker How long have you smoked: 30 yrs Approximately how many cigarettes per day: 1-1.5 ppd Do you dip or chew tobacco: No If,Former Smoker,when did you quit: 35 years Discharge Exam General Appearance: no apparent distress Neurologic Exam: alert, oriented x 3, cooperative Eye Exam: PERRL Ears, Nose, Throat Exam: normal ENT inspection Neck Exam: normal inspection Respiratory Exam: normal breath sounds, lungs clear Cardiovascular Exam: regular rate/rhythm, normal heart sounds Gastrointestinal/Abdomen Exam: soft, normal bowel sounds, tenderness, other (3 puncture sites covered in gauze/tegaderm CDI) Male Genitalia Exam: deferred Rectal Exam: deferred Back Exam: normal inspection Extremity Exam: normal inspection Final Diagnosis/Problem List - Final Discharge Diagnosis/Problem (1) Appendicitis Current Visit: Yes Status: Acute Assessment & Plan: Supported by leukocytosis (WBC 13.4) and CT abdomen showing thickened appendix with periappendiceal stranding. WBC trended down to 8.5 prior to discharge, indicating resolution of inflammation. Managed with IV Zosyn preoperatively, IV fluids at 100 cc/hr, and analgesia with IV Dilaudid. Underwent successful laparoscopic appendectomy (03/05/25). Discharged on Augmentin PO per surgical recommendations; Clothier PRN for pain. Advised to monitor for signs of infection, dehiscence, or ileus; instructed to seek care if fever, increasing pain, or drainage occurs. Follow-up: Outpatient surgical evaluation within 12 weeks. Code(s): K37 - UNSPECIFIED APPENDICITIS (2) Chronic pancreatitis Current Visit: Yes Status: Acute Assessment & Plan: CT noted chronic pancreatic calcifications without acute inflammation. Lipase low, supporting absence of acute flare. Advised strict abstinence from alcohol; reinforced importance of nutritional optimization and possible pancreatic enzyme therapy reassessment postoperatively. Follow-up: Outpatient Gastroenterology for long-term management and surveillance. Code(s): K86.1 - OTHER CHRONIC PANCREATITIS (3) Smoker Current Visit: Yes Status: Acute Assessment & Plan: Counseled on the increased risk of postoperative complications and recurrent pancreatic injury from continued smoking. Offered nicotine replacement therapy and outpatient smoking cessation resources. Follow-up: Primary care provider for continued cessation support. Code(s): F17.200 - NICOTINE DEPENDENCE, UNSPECIFIED, UNCOMPLICATED (4) TONIE (obstructive sleep apnea) Current Visit: Yes Status: Acute Assessment & Plan: Continued use of CPAP during hospitalization; no perioperative respiratory events. Resume home CPAP nightly. Discharge Condition: Stable, pain controlled, tolerating diet, ambulating independently. Disposition: Home. Follow-up: General Surgery: 12 weeks post-discharge Primary Care: 1 week for medication review and smoking cessation support Gastroenterology: Outpatient for chronic pancreatitis management Code(s): G47.33 - OBSTRUCTIVE SLEEP APNEA (ADULT) (PEDIATRIC) - Discharge Discharge Date: 03/06/25 Disposition: Home, Self-Care Condition: Stable Prescriptions: New Amox Tr/Potass Clav. 875 mg [Augmentin 875-125 Tablet] 875 mg PO BID #10 tablet Hydrocodone/Acetaminophen [Hydrocodone-Acetamin 5-325 mg] 1 tab PO Q4HPRN PRN #18 tablet MDD 6 PRN Reason: Pain Continue Testosterone Cypionate 0.25 mg SQ WEEKLY Ubrogepant [Ubrelvy] 2 tab PO DAILY PRN PRN PRN Reason: Headache Galcanezumab-Gnlm [Emgality Pen] 1 dose SQ . MONTHLY buPROPion HCL [Bupropion Xl] 300 mg PO DAILY Ondansetron ODT 4 MG [Zofran Odt 4 mg] 4 mg PO Q8H PRN PRN PRN Reason: Nausea/Vomiting Tizanidine HCl 4 mg [Zanaflex 4 MG] 4 mg PO BID buprenorphine HCL [Buprenorphine HCl] 8 mg SL Q4-6HPRN PRN PRN Reason: Pain Additional Instructions: Incision care: Keep your incision clean and dry. You may shower after 24 hoursgently wash and pat dry, but dont soak in a tub or pool until cleared by your surgeon. Watch for redness, swelling, drainage, or fever over 100.4F. Pain control: Take your pain medication (Clothier) as prescribed, but switch to Tylenol or ibuprofen as your pain improves. Avoid driving or drinking alcohol while taking narcotics. Activity: Light walking is encouraged to prevent stiffness and clots. Avoid heavy lifting (>10 lbs), straining, or strenuous activity for about 24 weeks or until cleared by your surgeon. Diet: Start with light foods and advance as tolerated. Drink plenty of fluids and aim for a balanced diet to support healing. Medications: Take Augmentin as prescribed until the course is complete. Continue your regular home medications unless told otherwise. When to call the doctor: Fever >100.4F, worsening abdominal pain, vomiting, swelling or drainage at the incision, difficulty breathing, or any new or concerning symptoms. Follow-up: Schedule your post-op visit with surgery in 12 weeks. Bring any questions or wound concerns to that appointment. Follow up with: FREDDIE BAR I [Primary Care Provider, PHYSICAL MED & REHAB] CHRISTINE MARSH [COURTESY STAFF, GENERAL SURGERY] - 1 Week
--- NOTE | 2025-03-06 12:33 | OP ---
SURGERY DATE/TIME: 03/05/2025 [id number] PREOPERATIVE DIAGNOSES: 1) Appendicitis. 2) History of chronic pancreatitis. 3) Sleep apnea. POSTOPERATIVE DIAGNOSES: 1) Appendicitis. 2) History of chronic pancreatitis. 3) Sleep apnea. PROCEDURE: Laparoscopic appendectomy. SURGEON: Gucci Liu MD ANESTHESIA: General. ESTIMATED BLOOD LOSS: Minimal. INDICATIONS: As above. Risks and benefits explained in detail but not limited to. DESCRIPTION OF PROCEDURE AND FINDINGS: The patient was taken to the operating room after waiting on anesthesia and OR staff availability, was prepped and draped in sterile fashion. After official time-out, no disagreement in planned procedure, transverse incision made supraumbilical. Fascia grasped and pulled upward. Veress needle inserted. Tested with saline. Pneumoperitoneum accomplished from an opening pressure of 0 to 15. A 5 mm bladeless port and camera inserted without difficulty. A 5 mm lower midline port and a 12 mm upper quadrant port were placed under direct vision of the camera. There was no evidence of an intraabdominal injury secondary to trocar insertion. The patient definitely had hyperemia of the ileum and thickened, inflamed, acutely suppurative appendicitis. There was no evidence of any macroperforation but it was quite inflamed and suppurative. Using the LigaSure device, mesoappendix, stayed right on the appendiceal border, the appendix was carefully mobilized upward down to its base at the cecum. Once the mesoappendix was cleared, the Endo TEE stapler was fired across the base of appendix to the cecum. Good hemostasis was noted. Appendix placed in provided sac, pulled up and out the 12 port. The port was replaced. Copious amount of irrigation accomplished in the right lower quadrant, down in the pelvis and along the right gutter. Irrigated clear. Staple line was intact on the cecum. No signs of any leakage. Mesoappendix was sealed. No signs of any active bleeding. It was felt there was no benefit from drain placement. The 12 fascial defect closed with puncture closure device using #1 Vicryl after copious amount of irrigation and clear. Pneumoperitoneum decompressed. Ports removed. Then again, the 12 fascial defect secured with #1 Vicryl. Wound was irrigated out. Skin incisions closed with 4-0 Vicryl. Marcaine 0.25% local was injected around the incisions. Anesthesia applied TAP blocks with some longer. The patient tolerated the procedure well. There were no immediate complications.
--- NOTE | 2025-03-06 12:40 | CONS ---
HISTORY OF PRESENT ILLNESS: A 49-year-old with history of chronic pancreatitis and heavy alcohol abuse in the past, not drinking heavily now. He does smoke. He has some abdominal pain, right-sided, and vomiting the past day and a half or so. Localized over the right abdomen. PAST MEDICAL HISTORY: Sleep apnea, uses CPAP at night. Past history of depression in the past. Head and neck spine and joint problems in the past, as well as chronic pancreatitis. HOME MEDICATIONS: He has been on some buprenorphine. Maalox. Emgality. He has been on some testosterone. Ubrelvy. Bupropion. Ondansetron. ALLERGIES: No known drug allergies. PAST SURGICAL HISTORY: Denied any prior abdominal surgery. He did have carpal tunnel in the past. SOCIAL HISTORY: As mentioned above. He does smoke a pack on a daily basis. REVIEW OF SYSTEMS: Pertinent for the abdominal complaints as mentioned above. He is having some persistent pain on the right side, although it is slightly better than yesterday. He is not sure. Twelve systems reviewed. Pertinent for medical problems as noted above per admission assessment. PHYSICAL EXAMINATION: VITALS: His temperature was 99.3 last night, blood pressure 120/87, pulse 64. GENERAL: Slightly uncomfortable, otherwise in no acute distress. HEENT: Sclerae nonicteric. Extraocular movements intact. Oral mucous membranes moist. NECK: No JVD. CHEST: Equal excursion, nonlabored breathing. CARDIOVASCULAR: Regular rate and rhythm. ABDOMEN: Soft. Some localized tenderness and involuntary guarding in the right lower lateral abdomen. EXTREMITIES: No cyanosis. NEUROLOGIC: Alert. Moving extremities grossly and symmetrically. PSYCHIATRIC: Appropriate mood and affect. SKIN: A few tattoos. No cyanosis. IMPRESSION: Acute right-sided abdominal pain. Personally reviewed CT films. He does have some evidence of some chronic calcified pancreatitis. He has an enlarged appendix, some periappendiceal fat stranding, suspicious for acute appendicitis. No other acute findings noted on the CT when compared to past CT. Acute right-sided abdominal pain. White count 13 with normal bilirubin, normal lipase. History and physical exam, CT, labs consistent with concern for acute appendicitis with laparoscopic appendectomy or possible open, risk of bleeding; infection; risk of trocar injury or hernia; risk of bowel, bladder or blood vessel injury; risk of subsequent intra-abdominal abscess, or fistula formation, possible percutaneous or open drainage even at a later date; possible need for open procedure; and possibility of finding a normal appendix, likely removing incidentally, and look for the etiology might need taken care of surgically; general risk of anesthesia, DVT, PE, but not limited to. He is agreeable to proceed with laparoscopic appendectomy with possible open.
== END 2025-03-06 10:18 | disposition home or self-care (01) ==
LOC: ED 21:47 → INTOOBSV 03-05 01:04 → MED SURG 03-05 01:04
PROVIDERS: ADMIT Internal Medicine; ATTEND Internal Medicine
DX: K35.80 Unspecified acute appendicitis (principal); K86.1 Other chronic pancreatitis; G47.33 Obstructive sleep apnea (adult) (pediatric); F17.200 Nicotine dependence, unspecified, uncomplicated; D72.829 Elevated white blood cell count, unspecified; E87.6 Hypokalemia; Z79.899 Other long term (current) drug therapy
CPT/HCPCS: 36415; 44970; 74177; 80053; 81001; 83605; 83690; 85025; 85610; 85730; 86850; 86900; 86901; 87040; 96374; 96375; 99285; Q3014